=== PATIENT | male | born 1960 | race Caucasian/White ===

== ENCOUNTER 2016-06-19 05:54 | Inpatient (IN) | payer MEDICARE, OTHER ==
[2016-06-12 14:51] LABS: WBC (NOT ORDERED) (RFLEX) 0 (0-5)
[2016-06-12 15:31] LABS: BASOPHILS 0.6 %; BASOPHILS ABSOLUTE 0.03 10/3/uL (0.0-0.16); EOSINOPHILS 2.1 %; EOSINOPHILS ABSOLUTE 0.11 10/3/uL (0.0-0.53); HEMATOCRIT 43.1 % (40.0-51.0); HEMOGLOBIN 14.5 g/dL (13.6-17.8); IMMATURE GRANULOCYTES 0.2 %; IMMATURE GRANULOCYTES ABSOLUTE 0.01 10/3/uL (0.0-0.11); LYMPHOCYTES 31.3 %; LYMPHOCYTES ABSOLUTE 1.66 10/3/uL (0.67-4.30); MEAN CORPUS HGB CONC 33.6 g/dL (32.0-36.0); MEAN CORPUSCULAR HEMOGLOB 27.6 pg (26.0-34.0); MEAN CORPUSCULAR VOLUME 81.9 fL (80-100); MEAN PLATELET VOLUME 10.2 fL (9.2-13.0); MONOCYTES 7.4 %; MONOCYTES ABSOLUTE 0.39 10/3/uL (0.21-1.20); NEUTROPHILS 58.4 %; PLATELET COUNT 171 10/3/uL (150-400); RBC DISTRIBUTION WIDTH 12.8 % (12.0-16.0); RED CELL COUNT 5.26 10/6/uL (4.7-6.1); WHITE BLOOD CELLS 5.3 10/3/uL (4.5-10.5)
[2016-06-12 15:40] LABS: MANUAL DIFF NO %; PROTIME (NOT ORD) 12.8 SEC (12.0-14.5)
[2016-06-12 15:51] LABS: % IRON SAT 20 % (20-50); A/G RATIO 1.2 (0.7-1.9); ALBUMIN 4.1 G/DL (3.5-5.0); ALKALINE PHOSPHATASE 96 U/L (45-117); BUN (BLOOD UREA NITROGEN) 16 MG/DL (6-23); CALCIUM, SERUM 9.3 MG/DL (8.5-10.4); CHLORIDE, SERUM 99 MMOL/L (96-112); CO2 (CARBON DIOXIDE) 33 MMOL/L (24-34); CREATININE 0.93 MG/DL (0.70-1.30); GFR AFRICAN AMERICAN 105 ML/MIN (>=60); GFR NON AFRICAN AMERICAN 90 ML/MIN (>=60); GLOBULIN 3.4 G/DL (2.5-4.1); GLUCOSE, SERUM 116 MG/DL (60-99); IRON BINDING CAPACITY 416 MCG/DL (250-450); IRON, SERUM 82 MCG/DL (35-150); POTASSIUM, SERUM 4.8 MMOL/L (3.5-5.3); SGOT(AST) 28 U/L (5-40); SGPT(ALT) 60 U/L (5-65); SODIUM, SERUM 137 MMOL/L (135-148); TOTAL BILIRUBIN 0.4 MG/DL (0-1.2); TOTAL PROTEIN 7.5 G/DL (6.0-8.5)
[2016-06-12 16:12] LABS: ASCORBIC ACID (UR NOT ORDER) NEG (NEG); BILIRUBIN, URINE NEGATIVE (NEG); KETONE, URINE NEGATIVE (NEG); LEUKOCYTE ESTERASE(NOT OR NEG (NEG)
--- NOTE | ~2016-06-19 | DS ---
Discharge Summary [id number] [facility] [place]. [address] NAME: JESSICA LARSEN : 56 STATUS : DIS IN PAT#: [id number] AGE: 56 ADM/REG DATE : 06/19/16 MR#: [id number] REPORT SERV DATE: 08/07/16 DICTATED BY: ISAI HUANG DATE: 08/06/16 REPORT STATUS : Draft TRANSCRIBED BY: MODLili DATE: 08/06/16 Data Collection from hospitalization DISCHARGE DIAGNOSES: 1. Aortic valve stenosis. 2. Type 2 owh-orjjggh-ycscbjkht diabetes mellitus. 3. Hypertension. 4. Morbid obesity. 5. Obstructive sleep apnea. 6. Chronic obstructive pulmonary disease. 7. Fibromyalgia. 8. Dyslipidemia. 9. Depression. CONSULTATIONS: 1. Kandis Rubio MD. 2. Ben Mckeon M.D. 3. Nate Mayorga MD. PROCEDURES PERFORMED: Minimally invasive aortic valve replacement using a 25 mm pericardial valve (Trifecta); right femoral vein cannulation for cardiopulmonary bypass, percutaneous; internal rigid fixation of sternum using a single large titanium plate and 10 titanium screws; transesophageal echocardiography on 06/19/2016. PATHOLOGY: Aortic valve valvuloplasty - fragments of calcified atheroma. MEDICATIONS: ProAir two puffs via inhaler every four hours as needed, albuterol sulfate 0.63 mg via inhaler four times a day as needed, Lotrel one capsule daily, vitamin C 1000 mg twice a day, aspirin 81 mg daily, Lioresal 10 mg three times a day, Zetia 10 mg daily, Advair Diskus one puff via inhaler twice a day, Lasix 20 mg daily, Neurontin 900 mg three times a day, Mevacor 80 mg at bedtime, Mobic 15 mg daily as needed, Glucophage 500 mg with breakfast and supper, Lopressor 25 mg twice a day, NitroQuick 0.4 mg sublingually as needed, Lyrica 300 mg twice a day, Ultram 100 mg three times a day, Viibryd 40 mg daily, and Coumadin 7.5 mg every evening. CONDITION AT DISCHARGE: Stable. DISPOSITION: The patient was discharged home on an 1800-calorie cardiac/diabetic diet with activities as instructed. He would follow up with Jeyson Ayon on 08/06/2016, and with Dr. Ricardo Funes on 07/22/2016. He would follow up with Dr. Shikha Green as instructed. He would follow up at the [facility] in [place] on 06/25/2016. HOSPITAL COURSE: This is a 56-year-old man who has puk-ajvwvqv-iwydyqjkp diabetes mellitus. He has a known history of aortic valve stenosis and worsening episodes of dyspnea and chest discomfort. Recent echocardiography at Dr. Funes's office demonstrated worsening aortic stenosis with peak gradient of 77 mmHg across the valve. The valve area was estimated at 0.7 cm2. His ventricular function was preserved. His ejection fraction was greater than 50%. He recently underwent a cardiac catheterization, which demonstrated only mild diagonal Discharge Summary [address] [address] NAME: JESSICA LARSEN : 56 STATUS : DIS IN PAT#: [id number] AGE: 56 ADM/REG DATE : 06/19/16 MR#: [id number] REPORT SERV DATE: 08/07/16 DICTATED BY: ISAI HUANG DATE: 08/06/16 REPORT STATUS : Draft TRANSCRIBED BY: AIMEE DATE: 08/06/16 disease. We were asked to see the patient regarding possible aortic valve replacement. Treatment options were discussed and it was elected to proceed with surgical intervention. He was admitted to the hospital at this time for further evaluation and treatment. Upon admission, he was taken to the operating room where he underwent the above-mentioned procedure. He tolerated this well, and there were no complications. On postop day #1, he was seen by Dr. Ben Mckeon. He was alert. Valve sounds were normal. He was in a regular sinus rhythm. He was seen in consultation by Dr. Kandis Rubio regarding COPD with evidence of bronchospasm and obstructive sleep apnea. The patient has underlying obstructive sleep apnea for which he uses noninvasive positive pressure ventilation at night as an outpatient. He has slightly restrictive lung disease, presumably secondary to his obesity. He does use Advair Diskus and albuterol nebulizers as an outpatient. He does take home diuretics including Lasix with potassium supplementation. He had been extubated, but did have significant wheezing. It was suspected that his wheezing was less likely secondary to bronchospasm and more likely secondary to mild pulmonary edema/cardiac asthma. He does have some pitting edema and basilar crackles on physical exam. His current bronchodilator regimen was continued including short-acting beta agonist and that muscarinic agent and his outpatient inhalers. We would proceed with gentle diuresis and a trial of corticosteroids, this was okay with the primary team. It was felt that he would benefit using an incentive spirometer and flutter valve as well as aggressive mobilization postoperatively and noninvasive positive pressure ventilation at night. He was also seen by Dr. Nate Mayorga. The patient was in the ICU. He was going to assist with diabetes management while in the ICU. He was currently on an insulin drip. On 06/21/2016, he was in no acute distress. Chest x-ray showed no acute process. He had clinically improved. His wheezing had resolved and shortness of breath had been managed with diuresis. Corticosteroids were held. There was no evidence of bronchospasm or COPD by pulmonary function test. Blood glucose was controlled. He was going to be transitioned to sliding scale insulin and Levemir. He was in a regular sinus rhythm. Chest tube was removed. The next day, he had no edema. His incisions looked okay. Discharge planning was performed. He was up sitting in a chair. INR level was 1.2. He underwent diabetes education on 06/23/2016. He was awake and alert. He was ambulating without difficulty. He was comfortable. Discharge instructions were given. Due to his improved and stable condition, he was discharged home with the above-stated instructions. Information collected by: Wendy Alan I submit the above information as my discharge summary. TG/MODL Isai Huang M.D. / [id number] CC: Isai Huagn M.D. Discharge Summary [address] [address] NAME: JESSICA LARSEN : 56 STATUS : DIS IN PAT#: [id number] AGE: 56 ADM/REG DATE : 06/19/16 MR#: [id number] REPORT SERV DATE: 08/07/16 DICTATED BY: ISAI HUANG DATE: 08/06/16 REPORT STATUS : Draft TRANSCRIBED BY: AIMEE DATE: 08/06/16 SHIKHA GREEN M.D.
--- NOTE | ~2016-06-19 | DS ---
Discharge Summary [place] [address] [place]. [address] NAME: JESSICA LARSEN : 56 STATUS : DIS IN PAT#: [id number] AGE: 56 ADM/REG DATE : 06/19/16 MR#: [id number] REPORT SERV DATE: 07/03/16 DICTATED BY: ISAI HUANG DATE: 07/02/16 REPORT STATUS : Draft TRANSCRIBED BY: MODL DATE: 07/02/16 Data Collection from hospitalization DISCHARGE DIAGNOSES: 1. Aortic valve stenosis. 2. Type 2 zub-gtgifbh-hawyrooxr diabetes mellitus. 3. Morbid obesity. 4. Obstructive sleep apnea. 5. Chronic obstructive pulmonary disease. 6. Hypertension. 7. Fibromyalgia. 8. Dyslipidemia. CONSULTATION: Dr. Kandis Rubio. Information collected by: Wendy Alan I submit the above information as my discharge summary. TG/AIMEE Isai Huang M.D. / [id number] CC: Sharmaine Vazquez VICKI R
--- NOTE | ~2016-06-19 | OP ---
Record Of Operation [facility] [address] [place]. [address] NAME: JESSICA LARSEN : 56 STATUS : ADM IN PAT#: [id number] AGE: 56 ADM/REG DATE : 06/19/16 MR#: [id number] REPORT SERV DATE: 06/19/16 DICTATED BY: ISAI HUANG DATE: 06/19/16 REPORT STATUS : Draft TRANSCRIBED BY: MODL DATE: 06/19/16 DATE OF PROCEDURE: 06/19/2016 PREOPERATIVE DIAGNOSES: 1. Aortic valve stenosis. 2. Type 2 tuz-eeysblf-pziqouony diabetes mellitus. 3. Hypertension. 4. Hyperlipidemia. 5. Morbid obesity. 6. Depression. 7. Obstructive sleep apnea. POSTOPERATIVE DIAGNOSES: 1. Aortic valve stenosis. 2. Type 2 gqr-xihjnrw-vbnuutjkl diabetes mellitus. 3. Hypertension. 4. Hyperlipidemia. 5. Morbid obesity. 6. Depression. 7. Obstructive sleep apnea. PROCEDURES PERFORMED: 1. Minimally invasive aortic valve replacement using a 25 mm pericardial valve (Trifecta). 2. Right femoral vein cannulation for cardiopulmonary bypass, percutaneous. 3. Internal rigid fixation of sternum using a single large titanium plate and 10 titanium screws. 4. Transesophageal echocardiography. SURGEON: Isai Huang M.D. ASSISTANTS: Mian Grant and Orlando Mahmood. CO-SURGEON: Vadim Mahmood MD ANESTHESIA: General with Dr. Bess. ELECTRIC HOIST OPERATOR: Ricardo Funes M.D. PRIMARY CARE: Shikha Green. INDICATIONS: This is a 56-year-old obese gentleman with zzc-hbjxsiq-riuwwdftn diabetes mellitus. He has a known history of aortic valve stenosis, worsening episodes of dyspnea, and chest discomfort. Recent echocardiography at Dr. Funes's office demonstrated worsening aortic valve stenosis with a peak gradient of 77 mmHg across the valve. The valve area was estimated at 0.7 cm2. His ventricular function was preserved. His ejection fraction was greater than 50%. He recently underwent cardiac catheterization, demonstrating Record Of Operation [facility] [address] [place]. [address] NAME: JESSICA LARSEN : 56 STATUS : ADM IN PAT#: [id number] AGE: 56 ADM/REG DATE : 06/19/16 MR#: [id number] REPORT SERV DATE: 06/19/16 DICTATED BY: ISAI HUANG DATE: 06/19/16 REPORT STATUS : Draft TRANSCRIBED BY: MODL DATE: 06/19/16 only mild diagonal disease. We were asked to see the patient for possible aortic valve replacement. We discussed this operation at length with the patient and his . After discussing the operations, its indication and risks, they wished to proceed. The patient preferred a tissue prosthesis for implantation. In addition, we discussed STS predicted mortality of 1.5%, morbidity and mortality of 14%. Preoperative pulmonary function studies demonstrated an FEV1 of 2.49, which is 82% of predicted and DLCO of 99% of predicted. FINDINGS AT OPERATION: 1. Cross-clamp time 83 minutes, total pump time 106 minutes. 2. The aortic valve was a bicuspid valve with fusion of the right and left coronary cusps. There was a rudimentary post between the right and left cusps. Coronary anatomy was relatively normal with displacement of the right coronary ostia towards the noncoronary sinus. 3. The valve and subvalvular apparatus even extending on the anterior leaf of the mitral valve was extensively calcified. There were no root aneurysms. 4. We implanted a Trifecta pericardial valve and 17 Cor-Knots were used to secure the valve in place. 5. BRITTANY at the end of the operation demonstrated good ventricular function with an aortic valve prosthesis was well seated without perivalvular leak. There was no significant mitral insufficiency. 6. We used a single large ladder plate to secure the transected sternum. 7. This is a partial sternotomy extending from the sternal notch through the manubrium, down to the and including the first intercostal space. PATHOLOGIC SPECIMENS: Include aortic valve leaflets. DESCRIPTION OF PROCEDURE: The patient was brought to the operating suite where general anesthesia was induced, and the airway was secured with an endotracheal tube. Lines secured by Anesthesia, Madrigal catheter was placed. The patient's chest, abdomen, groin, and legs were prepped with Hibiclens and ChloraPrep and draped with Ioban sterile sheets. BRITTANY probe was placed by Dr. Bess and examination carried out in my attendance and as discussed above. There was no significant aortic insufficiency and no significant mitral valve insufficiency. Upper midline sternal wound incision was made for approximately 6-8 cm. This carried through the subcutaneous tissue down to the sternum. We identified the manubrium of the sternum along with the first intercostal space below the manubrium. At this level, we transected the sternum crossways and divided the sternum longitudinally from the sternal notch down to this transverse division of the sternum. A retractor was placed and we continued our dissection through the fat. Pericardium was identified and this was incised from the innominate vein to the limits of his sternotomy incision and then tacked to the side of the chest wall. Simultaneously, a needle was placed in the right femoral vein and guidewire advanced into the right atrium into the proximal SVC under echocardiography. Then, this tract was sequentially dilated, and after heparinization, a 07-93-Akemar venous percutaneous cannula was advanced over the guidewire and under echocardiographic guidance into the right atrium. Record Of Operation [facility] [address] [facility] [place]. [address] NAME: JESSICA LARSEN : 56 STATUS : ADM IN [facility]#: [id number] AGE: 56 ADM/REG DATE : 06/19/16 MR#: [id number] REPORT SERV DATE: 06/19/16 DICTATED BY: ISAI HUANG DATE: 06/19/16 REPORT STATUS : Draft TRANSCRIBED BY: AIMEE DATE: 06/19/16 Lines for cardiopulmonary bypass were cleared of air passed from the field. The venous line was connected to the cannula placed in the groin. A bolster suture was placed also. Pursestring sutures were placed in the ascending aorta and cannulation of the ascending aorta was carried out in the usual manner. This cannula was connected to pump tubing and cleared of air. When all was in readiness, the patient was placed on cardiopulmonary bypass. We continued our dissection of the ascending aorta area. Then, the antegrade cardioplegia cannula was placed and secured. The aorta was crossclamped and initial and only dose of cold crystalloid cardioplegia was given using the Custodiol solution for a total of 2 liters. During this time, an LV vent was placed through right superior pulmonary vein and directed into the left ventricle and secured. In addition, I was unhappy with the venous drainage from the femoral venous cannula. Therefore, dual-stage cannula for right atrial drainage was placed in the usual fashion and connected to the pump tubing. The right femoral venous cannula was removed and bolster suture tied securing the right femoral vein. Once the first dose of cardioplegia was administered, a uqzuch-rhbii-eyzs aortotomy incision was made. The aortic valve was exposed. As described in the findings, there was a bicuspid valve with heavy calcifications. Coronary anatomy was relatively normal. The aortic valve leaflets were excised and the annulus debrided including the calcifications extending onto the anterior leaflet of the mitral valve. We then irrigated the ascending aorta and left ventricle copiously with iced saline to remove any particulate matter. The valve was sized and a 25 mm pericardial valve was selected (Trifecta). Interrupted pledgeted sutures of 2-0 Tycron was placed circumferentially about the aortic valve annulus with the pledgets on the ventricular side. The sutures were passed through the sewing cuff of the prosthetic valve. This was lowered into position, each of the sutures individually secured and divided using a Cor-Knot device. A total of 17 Cor-Knots were utilized. Once the valve was in place, both right and left main coronary ostia were confirmed to be without obstruction. Warming was begun. The aortotomy incision was closed in a two-layer fashion running pledgeted suture of 5-0 Prolene. The patient was placed in Trendelenburg and the ascending aorta and left ventricle were de- aired. Aortic cross-clamp was then removed. We attempted to cardioversion using the R2 pads, then additional cardioversion was performed using internal paddles and 10 joules. Pacing wires were placed in the right ventricle and right atrium. The heart resumed a slow sinus rhythm and was paced in an atrial fashion at rate of 80. Ventilation was begun. When the heart demonstrated good contractility, it was allowed to fill and eject. The de-airing was monitored with BRITTANY. When deairing was completed, the LV vent was removed and these pursestring sutures tied. The ascending aortic vent was likewise removed and these pursestring sutures tied and reinforced. The patient was then weaned from cardiopulmonary bypass with minimal inotropic support. The Record Of Operation [facility] [address] [facility] [place] [address] NAME: JESSICA LARSEN : 56 STATUS : ADM IN [facility]#: [id number] AGE: 56 ADM/REG DATE : 06/19/16 MR#: [id number] REPORT SERV DATE: 06/19/16 DICTATED BY: ISAI HUANG: 06/19/16 REPORT STATUS : Draft TRANSCRIBED BY: AIMEE DATE: 06/19/16 venous cannula was removed and these pursestring sutures tied. BRITTANY examination demonstrated good ventricular function. The aortic valve prosthesis was well seated without perivalvular leak. There was no significant mitral insufficiency. Protamine was administered by Anesthesia and following a period of hemodynamic stability, the aortic cannula was removed and these pursestring sutures tied and reinforced. The patient continued do well and chest irrigated copiously with saline. Meticulous hemostasis was obtained. Hemasorb was placed along the cut edge of the sternum. Once hemostasis was assured, the pericardium was draped over the anterior surface of heart and tacked into position. A single 32-Sammarinese chest tube was directed through the right chest into the periaortic area and secured to the skin. Then, the manubrium was reapproximated with three sternal wires. These three sternal wires were used to bring the manubrium of the first and second portions of the sternum that had been divided by the transverse sternotomy at the first intercostal space below the manubrium. Once adequately reduced, this transverse division was held securely into place using a large lateral titanium plate and 10 titanium screws. The sternal wires were secured. Then, the clavipectoral fascia was reapproximated in the midline. The subcutaneous tissue was closed with Stratafix. The skin was closed in subcuticular fashion. The patient tolerated the procedure well. There were no complications. Sponge and needle counts were correct. DISPOSITION: The patient was left intubated, sedated, and transported to the Intensive Care Unit in stable condition. AYAAN/AIMEE Isai Huang M.D. / [id number] CC: Sharmaine Vazquez M.D.
--- NOTE | ~2016-06-19 | CN ---
Consultation Report [facility] [address] [place] [place]. [address] NAME: JESSICA LARSEN : 56 STATUS : ADM IN PAT#: [id number] AGE: 56 ADM/REG DATE : 06/19/16 MR#: [id number] REPORT SERV DATE: 06/20/16 DICTATED BY: PRINCESS MCKENNA DATE: 06/20/16 REPORT STATUS : Draft TRANSCRIBED BY: MODL DATE: 06/20/16 PULMONARY CRITICAL CARE CONSULTATION DATE OF CONSULTATION: 06/20/2016 REASON FOR CONSULTATION: COPD with evidence of bronchospasm and obstructive sleep apnea. HISTORY OF PRESENT ILLNESS: Mr. Larsen is a 56-year-old gentleman, who is morbidly obese with underlying aortic valve stenosis who has been experiencing worsening dyspnea, particularly with exertion and intermittent episodes of chest pain for the last month or so. He was actually seen at the [facility] in [place] after being referred by his primary care physician and underwent echocardiogram, which showed aortic valve stenosis with a peak gradient across the valve of 77 mmHg, the valve area was estimated at 0.7 cm2. He had actually undergone recent cardiac cath, which demonstrated mild diagonal disease with markedly elevated LVEDP at 30 to 35. He was seen by Dr. Huang at the [facility] for consideration of possible aortic valve intervention. He underwent minimally invasive aortic valve replacement with a pericardial prosthesis on Wednesday and tolerated that procedure well. He is now extubated but with significant wheezing. His pulmonary history is significant for underlying obstructive sleep apnea, for which he uses noninvasive positive pressure ventilation at night as an outpatient. He was seen by Dr. Maher in [place] and his records from Dr. Maher's office have been requested by the surgical team. In reviewing his last pulmonary function test from Dr. Maher's office at [facility] in [place], which was performed on 11/22/2013, he had a fairly unremarkable spirometry with an FEV1/FVC of 72.4 and normal gas diffusion. He had a slight restrictive lung disease presumably secondary to his obesity. He does use Advair Diskus 500/50 and albuterol nebs as an outpatient and does take home diuretics including Lasix with potassium supplementation. OTHER PAST MEDICAL HISTORY: Include: 1. Morbid obesity. 2. Type 2 diabetes mellitus with hemoglobin A1c measured during this admission of 7.8. 3. Dyslipidemia. 4. Hypertension. 5. Sleep apnea as above. 6. Fibromyalgia. SOCIAL HISTORY: He is an ex-smoker who quit several years ago. FAMILY HISTORY: Includes hypertension, coronary artery disease, and dyslipidemia in multiple first-degree relatives. His father had a sudden cardiac at age 66. ALLERGIES: INCLUDE SULFA. Consultation Report [facility] [place] [address] [place]. [address] NAME: JESSICA LARSEN : 56 STATUS : ADM IN PAT#: [id number] AGE: 56 ADM/REG DATE : 06/19/16 MR#: [id number] REPORT SERV DATE: 06/20/16 DICTATED BY: PRINCESS MCKENNA DATE: 06/20/16 REPORT STATUS : Draft TRANSCRIBED BY: AIMEE DATE: 06/20/16 HOME MEDICATIONS: Include Advair, albuterol, amlodipine, aspirin, baclofen, Lasix, gabapentin, ipratropium, lovastatin, Lyrica, meloxicam, metformin, metoprolol, nitroglycerin, potassium, ProAir, tramadol, Viibryd, and Zetia. Please see his detailed home medication list in the chart for specific doses and frequencies. REVIEW OF SYSTEMS: A comprehensive 13-point review of systems was completed and was negative except for those points described above in the history of present illness section of the dictation. PHYSICAL EXAMINATION: VITAL SIGNS: Stable. GENERAL: The patient is an obese, male, in no acute distress. He has audible wheezing. HEENT: Head is atraumatic and normocephalic. Pupils are equal, round, and reactive to light. Extraocular movements are intact. Ears, nose, and mouth are unremarkable. He has fair oral dentition and moist oral mucosa. CHEST: With several recently closed minimally invasive surgical scars from aortic valve replacement. He has bibasilar crackles and diminished breath sounds and expiratory wheezing. He has a few transmitted upper airway sounds, which clear with coughing. HEART: S1 and S2. Brisk cap refill to distal extremities. ABDOMEN: Obese, soft, nontender, and nondistended. Positive bowel sounds in all four quadrants, and no appreciable peritoneal signs. : A Madrigal catheter is indwelling and draining a translucent yellow urine. He has a femoral closure from recent cannulation for extracorporeal circulation during aortic valve replacement. EXTREMITIES: Without clubbing or cyanosis. He has trace pedal edema bilaterally extending up to the knee. Lymphatic exam is unremarkable. NEUROLOGIC: Grossly intact. He moves all four and sensation is intact throughout. He does follow commands without difficulty. PSYCHIATRIC: Appropriate to situation. DIAGNOSTIC DATA: Personal review of diagnostic workup: His chest x-ray shows low lung volumes, obesity, and some opacity of both lung bases consistent with mild pulmonary edema. CBC is unremarkable. He has normochromic, normocytic anemia postoperatively with a platelet count of a 140 and normal coags. Carbon dioxide is normal at 23. To my knowledge, he is not a CO2 retainer in reviewing the previous records from the outpatient setting, which were available in the chart. Renal function is unremarkable. Electrolytes are unremarkable including magnesium, potassium. His blood glucose has ranged from 90 to 188, and an ABG was performed on 06/19/2016 at 1706 hours, which was fairly unremarkable. Glycohemoglobin was 7.8. Pulmonary function test reviewed above in the HPI section of the dictation. EKG, echocardiogram, and outpatient records from [facility] and Pulmonology in [place] were reviewed, operative report has been reviewed. IMPRESSION: 1. Acute hypoxemic respiratory failure status post aortic valve replacement (minimally Consultation Report [place] [id number] [facility]. [address] NAME: JESSICA LARSEN : 56 STATUS : ADM IN [facility]#: [id number] AGE: 56 ADM/REG DATE : 06/19/16 MR#: [id number] REPORT SERV DATE: 06/20/16 DICTATED BY: PRINCESS MCKENNA DATE: 06/20/16 REPORT STATUS : Draft TRANSCRIBED BY: AIMEE DATE: 06/20/16 invasive) with underlying history of obstructive sleep apnea. 2. Mild hypervolemia. 3. Morbid obesity. 4. Aortic stenosis status post valve replacement as above. 5. Remote tobacco abuse. PLAN: Mr. Larsen does have audible wheezing, although in reviewing his pulmonary function tests from the outpatient office in 2013, it appears that he has no obstructive lung disease by spirometry and has a normal diffusing capacity. Of note, he is on Advair and albuterol as an outpatient. Suspect that his wheezing is less likely secondary to bronchospasm and more likely secondary to mild pulmonary edema/cardiac asthma, as he is net volume positive status post surgery and has some pitting edema and basilar crackles on physical exam. We would continue his current bronchodilator regimen including short-acting beta agonist and muscarinic agents and his outpatient inhalers and proceed with gentle diuresis and trial of corticosteroids if okay with primary team. He would benefit from using incentive spirometer and Flutter valve, aggressive mobilization postoperatively and noninvasive positive pressure ventilation at night. Orders for the above have all been completed and we will follow up on his progress tomorrow morning. Thank you for the opportunity to consult on your patient. Please call with questions. FRANCO/AIMEE Princess Mckenna MD / [id number] CC: Kareme Huang M.D.
[~2016-06-19 05:54] MED LIST: ADVAIR INH; ALBUTEROL0.63 MG/3 INH; ASAB PO; CADUET5 MG/10 MG PO; FLONASE NAS; GLUCOPHAGE1000 MG PO; GLUCPH PO; KLOR-CON 1010 MEQ PO; L40 PO; LIOR10 PO; LOP25 PO; LOTREL1 CA2 PO; LYRICA150 MG PO; LYRICA300 MG PO; MEVACOR40 MG PO; MOBIC15 MG PO; NEUR600 PO; NITROQUICK0.4 MG SL; PROAIR HFA INH; SINGULAIR1 PO; ULTRAM50 PO; VIBRYD PO; VIIBRYD20 MG PO; ZETIA PO
[2016-06-19 12:47] LABS: CARBOXYHEMOGLOBIN 0.2 % (0-3); HCO3 (ACTUAL BICARBONATE) 22.7 MEQ/L (23-27); HEMOBLOGIN CONTENT 13.6 G/DL (14-18); INSTRUMENT SERIAL # 11843; METHEMOGLOBIN 0.6 % (0-3); MODE SIMV; O2 CONTENT 19.4 VOL% (18-24); OPERATOR ID 13715; PCO2 (CO2 TENSION) 43 MMHG (35-45); PO2 (O2 TENSION) 266 MMHG (79-93); SAMPLE Arterial; TIDAL VOLUME 750 ML; pH 7.34 (7.37-7.43)
[2016-06-19 13:06] LABS: PLATELET COUNT 102 10/3/uL (150-400)
[2016-06-19 13:12] LABS: INTERNATIONAL NORMAL RATI 1.5 UNITS (-); PARTIAL THROMBO TIME 33.6 SEC (22.5-37.2); PROTIME (NOT ORD) 18.3 SEC (12.0-14.5)
[2016-06-19 13:18] LABS: BUN (BLOOD UREA NITROGEN) 13 MG/DL (6-23); CALCIUM, SERUM 9.1 MG/DL (8.5-10.4); CHLORIDE, SERUM 108 MMOL/L (96-112); CO2 (CARBON DIOXIDE) 25 MMOL/L (24-34); CREATININE 1.18 MG/DL (0.70-1.30); GFR AFRICAN AMERICAN 78 ML/MIN (>=60); GFR NON AFRICAN AMERICAN 68 ML/MIN (>=60); GLUCOSE, SERUM 112 MG/DL (60-99); POTASSIUM, SERUM 4.4 MMOL/L (3.5-5.3); SODIUM, SERUM 142 MMOL/L (135-148)
[2016-06-19 17:06] LABS: BE (BASE EXCESS) -0.8 MEQ/L (0 +/- 2.5); CARBOXYHEMOGLOBIN 0.4 % (0-3); DEVICE NC; INSTRUMENT SERIAL # 11843; METHEMOGLOBIN 0.5 % (0-3); O2 CONTENT 18.5 VOL% (18-24); OPERATOR ID 13715; PCO2 (CO2 TENSION) 45 MMHG (35-45); PO2 (O2 TENSION) 79 MMHG (79-93); SAMPLE Arterial; pH 7.36 (7.37-7.43)
[2016-06-19 18:47] LABS: HEMATOCRIT 37.8 % (40.0-51.0); HEMOGLOBIN 12.7 g/dL (13.6-17.8)
[2016-06-19 18:55] LABS: POTASSIUM, SERUM 4.6 MMOL/L (3.5-5.3)
[2016-06-20 05:24] LABS: INTERNATIONAL NORMAL RATI 1.1 UNITS (-)
[2016-06-20 05:27] LABS: BASOPHILS 0 %; EOSINOPHILS 0.1 %; EOSINOPHILS ABSOLUTE 0.01 10/3/uL (0.0-0.53); HEMATOCRIT 37.4 % (40.0-51.0); HEMOGLOBIN 12.5 g/dL (13.6-17.8); IMMATURE GRANULOCYTES 0.4 %; IMMATURE GRANULOCYTES ABSOLUTE 0.04 10/3/uL (0.0-0.11); LYMPHOCYTES 5.8 %; LYMPHOCYTES ABSOLUTE 0.57 10/3/uL (0.67-4.30); MEAN CORPUS HGB CONC 33.4 g/dL (32.0-36.0); MEAN CORPUSCULAR HEMOGLOB 27.7 pg (26.0-34.0); MEAN CORPUSCULAR VOLUME 82.9 fL (80-100); MEAN PLATELET VOLUME 10.6 fL (9.2-13.0); MONOCYTES 10.2 %; NEUTROPHILS 83.5 %; RBC DISTRIBUTION WIDTH 13.2 % (12.0-16.0); RED CELL COUNT 4.51 10/6/uL (4.7-6.1)
[2016-06-20 05:28] LABS: MANUAL DIFF NO %; PLATELET COUNT 140 10/3/uL (150-400); WHITE BLOOD CELLS 9.8 10/3/uL (4.5-10.5)
[2016-06-20 05:32] LABS: BUN (BLOOD UREA NITROGEN) 16 MG/DL (6-23); CALCIUM, SERUM 8.2 MG/DL (8.5-10.4); CHLORIDE, SERUM 110 MMOL/L (96-112); CO2 (CARBON DIOXIDE) 23 MMOL/L (24-34); CREATININE 1.06 MG/DL (0.70-1.30); GFR AFRICAN AMERICAN 89 ML/MIN (>=60); GFR NON AFRICAN AMERICAN 77 ML/MIN (>=60); POTASSIUM, SERUM 4.3 MMOL/L (3.5-5.3); SODIUM, SERUM 144 MMOL/L (135-148)
[2016-06-20 05:34] LABS: PROTIME (NOT ORD) 14.4 SEC (12.0-14.5)
[2016-06-20 05:36] LABS: GLUCOSE, SERUM 97 MG/DL (60-99)
[2016-06-20 15:40] LABS: HEMOGLOBIN 11.1 g/dL (13.6-17.8)
[2016-06-20 15:41] LABS: HEMATOCRIT 33.2 % (40.0-51.0)
[2016-06-20 21:17] LABS: POTASSIUM, SERUM 4.2 MMOL/L (3.5-5.3)
[2016-06-21 04:04] LABS: BASOPHILS 0 %; EOSINOPHILS 0 %; HEMATOCRIT 34.2 % (40.0-51.0); HEMOGLOBIN 11.4 g/dL (13.6-17.8); IMMATURE GRANULOCYTES 0.6 %; IMMATURE GRANULOCYTES ABSOLUTE 0.05 10/3/uL (0.0-0.11); LYMPHOCYTES 7.2 %; LYMPHOCYTES ABSOLUTE 0.64 10/3/uL (0.67-4.30); MANUAL DIFF NO %; MEAN CORPUS HGB CONC 33.3 g/dL (32.0-36.0); MEAN CORPUSCULAR HEMOGLOB 27.5 pg (26.0-34.0); MEAN CORPUSCULAR VOLUME 82.4 fL (80-100); MEAN PLATELET VOLUME 9.8 fL (9.2-13.0); MONOCYTES ABSOLUTE 0.71 10/3/uL (0.21-1.20); NEUTROPHILS 84.2 %; NEUTROPHILS ABSOLUTE 7.49 10/3/uL (2.02-8.40); PLATELET COUNT 113 10/3/uL (150-400); RBC DISTRIBUTION WIDTH 13.4 % (12.0-16.0); RED CELL COUNT 4.15 10/6/uL (4.7-6.1); WHITE BLOOD CELLS 8.9 10/3/uL (4.5-10.5)
[2016-06-21 04:26] LABS: ALBUMIN 3.5 G/DL (3.5-5.0); CALCIUM, SERUM 8.8 MG/DL (8.5-10.4); CHLORIDE, SERUM 106 MMOL/L (96-112); CO2 (CARBON DIOXIDE) 27 MMOL/L (24-34); CREATININE 1.06 MG/DL (0.70-1.30); GFR AFRICAN AMERICAN 89 ML/MIN (>=60); GFR NON AFRICAN AMERICAN 77 ML/MIN (>=60); GLUCOSE, SERUM 108 MG/DL (60-99); PHOSPHORUS, SERUM 1.3 MG/DL (2.5-4.5); POTASSIUM, SERUM 3.8 MMOL/L (3.5-5.3); SODIUM, SERUM 142 MMOL/L (135-148)
[2016-06-21 04:27] LABS: BUN (BLOOD UREA NITROGEN) 20 MG/DL (6-23)
[2016-06-21 10:45] LABS: POTASSIUM, SERUM 3.8 MMOL/L (3.5-5.3)
[2016-06-21 13:10] LABS: POTASSIUM, SERUM 4.3 MMOL/L (3.5-5.3)
[2016-06-22 03:38] LABS: ALBUMIN 2.9 G/DL (3.5-5.0); CALCIUM, SERUM 8.7 MG/DL (8.5-10.4); CHLORIDE, SERUM 101 MMOL/L (96-112); CO2 (CARBON DIOXIDE) 29 MMOL/L (24-34); GFR AFRICAN AMERICAN 109 ML/MIN (>=60); GFR NON AFRICAN AMERICAN 94 ML/MIN (>=60); INTERNATIONAL NORMAL RATI 1.2 UNITS (-); POTASSIUM, SERUM 4.7 MMOL/L (3.5-5.3); PROTIME (NOT ORD) 14.7 SEC (12.0-14.5); SODIUM, SERUM 138 MMOL/L (135-148)
[2016-06-22 03:43] LABS: BASOPHILS 0 %; BUN (BLOOD UREA NITROGEN) 24 MG/DL (6-23); EOSINOPHILS 0.1 %; EOSINOPHILS ABSOLUTE 0.01 10/3/uL (0.0-0.53); GLUCOSE, SERUM 205 MG/DL (60-99); HEMATOCRIT 31.2 % (40.0-51.0); HEMOGLOBIN 10.3 g/dL (13.6-17.8); IMMATURE GRANULOCYTES 0.3 %; IMMATURE GRANULOCYTES ABSOLUTE 0.02 10/3/uL (0.0-0.11); LYMPHOCYTES 10.4 %; LYMPHOCYTES ABSOLUTE 0.74 10/3/uL (0.67-4.30); MEAN CORPUSCULAR HEMOGLOB 27.2 pg (26.0-34.0); MEAN CORPUSCULAR VOLUME 82.5 fL (80-100); MEAN PLATELET VOLUME 10.1 fL (9.2-13.0); MONOCYTES 14.5 %; MONOCYTES ABSOLUTE 1.03 10/3/uL (0.21-1.20); NEUTROPHILS 74.7 %; NEUTROPHILS ABSOLUTE 5.29 10/3/uL (2.02-8.40); PHOSPHORUS, SERUM 2.7 MG/DL (2.5-4.5); PLATELET COUNT 126 10/3/uL (150-400); RBC DISTRIBUTION WIDTH 13.5 % (12.0-16.0); RED CELL COUNT 3.78 10/6/uL (4.7-6.1); WHITE BLOOD CELLS 7.1 10/3/uL (4.5-10.5)
[2016-06-22 03:53] LABS: MANUAL DIFF NO %
[2016-06-23 05:47] LABS: BASOPHILS 0 %; EOSINOPHILS ABSOLUTE 0.06 10/3/uL (0.0-0.53); HEMATOCRIT 33.4 % (40.0-51.0); HEMOGLOBIN 11.1 g/dL (13.6-17.8); IMMATURE GRANULOCYTES 0.2 %; IMMATURE GRANULOCYTES ABSOLUTE 0.01 10/3/uL (0.0-0.11); LYMPHOCYTES 24.5 %; LYMPHOCYTES ABSOLUTE 1.44 10/3/uL (0.67-4.30); MANUAL DIFF NO %; MEAN CORPUS HGB CONC 33.2 g/dL (32.0-36.0); MEAN CORPUSCULAR HEMOGLOB 27.7 pg (26.0-34.0); MEAN CORPUSCULAR VOLUME 83.3 fL (80-100); MEAN PLATELET VOLUME 9.6 fL (9.2-13.0); MONOCYTES 13.4 %; MONOCYTES ABSOLUTE 0.79 10/3/uL (0.21-1.20); NEUTROPHILS 60.9 %; NEUTROPHILS ABSOLUTE 3.58 10/3/uL (2.02-8.40); PLATELET COUNT 148 10/3/uL (150-400); RBC DISTRIBUTION WIDTH 13.6 % (12.0-16.0); RED CELL COUNT 4.01 10/6/uL (4.7-6.1); WHITE BLOOD CELLS 5.9 10/3/uL (4.5-10.5)
[2016-06-23 05:52] LABS: INTERNATIONAL NORMAL RATI 1.2 UNITS (-); PROTIME (NOT ORD) 14.7 SEC (12.0-14.5)
[2016-06-23 06:03] LABS: CALCIUM, SERUM 8.8 MG/DL (8.5-10.4); CHLORIDE, SERUM 99 MMOL/L (96-112); CO2 (CARBON DIOXIDE) 29 MMOL/L (24-34); CREATININE 1.08 MG/DL (0.70-1.30); GFR AFRICAN AMERICAN 87 ML/MIN (>=60); GFR NON AFRICAN AMERICAN 75 ML/MIN (>=60); POTASSIUM, SERUM 4.2 MMOL/L (3.5-5.3); SODIUM, SERUM 136 MMOL/L (135-148)
[2016-06-23 06:04] LABS: BUN (BLOOD UREA NITROGEN) 30 MG/DL (6-23); GLUCOSE, SERUM 119 MG/DL (60-99)
[2016-06-23] MEDS ORDERED: VITC500 PO (11:22)
[2016-06-23] MEDS ORDERED: COUMADIN7.5 MG PO (11:33)
[2016-07-05] MEDS ORDERED: NORCO1 TAB PO (02:23)
[2016-07-05] MEDS ORDERED: KLOR-CON M2020 MEQ PO (13:39)
[2016-07-05] MEDS ORDERED: PRILO PO (13:40)
[2016-07-05] MEDS ORDERED: SINGULAIR1 PO (13:40)
== END 2016-06-23 12:16 | disposition home or self-care (01) | DRG 219 ==
LOC: SDC/OF 05:54 → CVICU 11:31 → 5NO 06-22 10:23
PROVIDERS: Internal Medicine Critical Care Medicine; Thoracic Surgery (Cardiothoracic Vascular Surgery)
DX: I35.0 Nonrheumatic aortic (valve) stenosis (principal); J95.821 Acute postprocedural respiratory failure; E66.01 Morbid (severe) obesity due to excess calories; E11.9 Type 2 diabetes mellitus without complications; I10 Essential (primary) hypertension; D64.9 Anemia, unspecified; E78.5 Hyperlipidemia, unspecified; F32.9 Major depressive disorder, single episode, unspecified; G47.33 Obstructive sleep apnea (adult) (pediatric); Z68.38 Body mass index [BMI] 38.0-38.9, adult; Z79.51 Long term (current) use of inhaled steroids; M79.7 Fibromyalgia; Z88.2 Allergy status to sulfonamides; Z79.84 Long term (current) use of oral hypoglycemic drugs; Z79.82 Long term (current) use of aspirin
CPT/HCPCS: 36415; 71010; 71020; 80048; 80053; 80069; 81001; 82330; 82803; 82805; 82947; 82962; 83036; 83540; 83550; 83735; 84132; 84295; 85014; 85018; 85025; 85049; 85347; 85384; 85576; 85576-59; 85610; 85730; 86850; 86900; 86901; 86920; 87641; 88305; 93005; 93312; 93320; 93325; 94002; 94640; 94660; 94667; 94668; 94770; A9270-GY; C1713; C1751; C1769; J0690; J1644; J1885; J1940; J2150; J2250; J2370; J2405; J2440; J2720; J2795; J2920; J2930; J3010; J3475; J3480; P9045; P9047